=== PATIENT | female | born 1980 | race Caucasian/White ===

== ENCOUNTER 2019-08-13 09:25 | Emergency (ER) | payer OTHER ==
[~2019-08-13] VITALS: Ht 170.2 cm; Wt 58.1 kg
[~2019-08-13 09:25] MED LIST: IBUPROFEN 800800 MG PO
[2019-08-13] MEDS ORDERED: TORADOL 10 MG T10 MG PO (10:16)
[2019-08-13] MEDS ORDERED: MEDROLDOSEPACK PO (10:16)
[2019-08-13] MEDS ORDERED: CYCLOBENZAPRINE5 MG PO (10:16)
[2019-08-13 10:48] VITALS: BP 122/75
== END 2019-08-13 10:49 | disposition home or self-care (01) ==
LOC: M.ERS 09:25
DX: M54.5 Low back pain (principal); Z88.5 Allergy status to narcotic agent; Z98.51 Tubal ligation status